=== PATIENT | male | born 1990 | race Two or more races ===

== ENCOUNTER 2018-08-03 21:36 | Emergency (ER) | payer SELFPAY ==
[2018-08-03 22:22] VITALS: RESP 18; TEMP 98.6
[2018-08-03] MEDS ORDERED: Absorbable Gelatin Sponge Size 12-7 ONE (22:40)
--- NOTE | 2018-08-03 22:53 | ED PDOC ---
Upper Extremity Pain/Injury Time Seen by Provider: 08/03/18 22:39 Chief Complaint (Nursing): Finger,Hand,&Wrist History Per: Patient History/Exam Limitations: no limitations Onset/Duration Of Symptoms: Hrs Past Medical History Reviewed: Historical Data, Nursing Documentation, Vital Signs Vital Signs: Last Vital Signs Temp 98.6 F 08/03/18 22:19 Pulse 104 H 08/03/18 22:19 Resp 18 08/03/18 22:19 BP 150/95 H 08/03/18 22:19 Pulse Ox 98 08/03/18 22:19 - Medical History PMH: No Chronic Diseases - Surgical History Surgical History: No Surg Hx - Family History Family History: States: No Known Family Hx - Immunization History Hx Tetanus Toxoid Vaccination: Yes (3 yrs. ago) - Allergies Allergies/Adverse Reactions: Allergies Allergy/AdvReac Type Severity Reaction Status Date / Time No Known Allergies Allergy Verified 08/03/18 22:17 Review of Systems Neurological: Negative for: Numbness Physical Exam - Physical Exam Appears: Positive for: Well, No Acute Distress Skin: Positive for: Normal Color, Warm, Dry Extremity: Positive for: Other (Left fifth digit: <1 cm. avulsion laceration to volar aspect of distal phalanx, (+) actively bleeding) - ECG O2 Sat by Pulse Oximetry: 98 Medical Decision Making Medical Decision Making: Wound cleansed with NS, gelfoam and bulky d/s/d applied with good hemostasis. Pt. observed x 30 mins. with no further bleeding. wound care inst. reviewed with pt. at length. Repeat bp 140/88, HR 84. Disposition - Clinical Impression Clinical Impression: Laceration - Patient ED Disposition Is Patient to be Admitted: No - Disposition Disposition: Routine/Home Disposition Time: 22:55 Condition: STABLE Additional Instructions: Keep dry x 2 days. can take gauze wrap off after 2 days but let sponge fall off on its own and don't get it wet. Instructions: Wound Care (DC) Forms: [facility] ([place]), [facility] ED School/Work Excuse
[2018-08-03 22:57] VITALS: BP 157/84; PULSE 57
[2018-08-03 22:58] VITALS: O2SAT 98
== END 2018-08-03 23:00 | disposition home or self-care (01) ==
LOC: H.ER 21:36
DX: S61.217A Laceration without foreign body of left little finger without damage to nail, initial encounter (principal); X58.XXXA Exposure to other specified factors, initial encounter